=== PATIENT | male | born 1975 | race Caucasian/White ===

== ENCOUNTER 2017-11-21 16:55 | Emergency (ER) | payer BC ==
--- NOTE | 2017-11-21 19:24 | RAD REPORT ---
EXAM DESCRIPTION: CT - Stone Protocol - 11/21/2017 7:08 pm CLINICAL HISTORY: Flank pain. urinary retention COMPARISON: No comparisons TECHNIQUE: Axial images were obtained without oral or IV contrast. Lack of contrast limits solid org an and vascular assessment. The [id number] spans the entirety of the system partially obscuring uppermost abdomen and lung bases. Coronal reformatted images were obtained and reviewed. All CT scans are performed using dose optimization technique as appropriate and may include automated exposure control or mA/KV adjustment according to patient size. FINDINGS: The lower lung cervantes are clear. Imaged portions of the liver and spleen show no suspicious findings on non-contrast imaging. The panc reas and adrenal glands are normal. No pathologic lymphadenopathy in the abdomen or pelvis. No urinary tract stones or obstructive uropathy. No bowel obstruction, free air, free fluid or abscess. Normal appendix noted. No significant bony abnormality. IMPRESSION: No urinary tract stones or obstructive uropathy.
[2017-11-21 20:18] LABS: Potassium 3.9 mEq/L (3.6-5.0)
[2017-11-21 20:24] LABS: Albumin 4.8 g/dL (3.2-5.5); Bilirubin Direct 0.1 mg/dL (0-0.2); Bilirubin Total 0.5 mg/dL (0.3-1.2); Protein, Total 8.1 g/dL (6.0-8.3)
[2017-11-21 20:26] LABS: Absolute Lymphocytes (CBC) 1.8 K/uL (0.7-4.9); Absolute Monocytes 0.6 K/uL (0.1-1.3); Absolute Neutrophil 8.2 K/uL (1.8-8.0); Basophils % 0.3 % (0-1.3); Eosinophils % 1.1 % (0-4.4); Hematocrit 45.6 % (39.6-49.0); Lymphocytes % 16.4 % (15.3-44.8); MCH 31.2 pg (27.0-35.0); MPV 10.7 fL (7.6-11.3); Monocytes % 5.6 % (3.3-12.3); RBC Red Blood Cell Count 5.07 M/uL (4.33-5.43)
[2017-11-21] MEDS ORDERED: NA CHLORIDE 0.9% 1,000 ML ONE (20:52)
[2017-11-21 21:52] LABS: Urine Bacteria <20 /HPF (NONE SEEN); Urine Culture Reflex Order NOT NEEDED; Urine RBC 20-50 /HPF (NONE SEEN)
[2017-11-21 21:53] LABS: Urine Blood 2+ (NEG); Urine Glucose NEGATIVE (NEG); Urine Protein NEGATIVE (NEG); Urine pH 6.5 (5.0-7.0)
--- NOTE | 2017-11-21 22:13 | EDPHYS ---
Physician Documentation [facility] Name: Nicho Hernandez Age: 42 yrs Sex: Male : 1975 Arrival Date: 11/21/2017 Time: 16:58 Bed 27 Private MD: None, None ED Physician Umair Ochoa HPI: 11/21 19:00 This 42 yrs old Male presents to ER via Ambulatory with complaints of Urinary cp Retention. 19:00 The patient presents with urinary symptoms, dribbling of urine, retention. cp 19:00 Onset: The symptoms/episode began/occurred yesterday, and became worse today. cp Associated signs and symptoms: Pertinent positives: abdominal pain, Pertinent negatives: constipation, diarrhea, dysuria, fever, hematuria, vomiting, testicular or penile pain. Severity of symptoms: in the emergency department the symptoms are actually worse. The patient has not experienced similar symptoms in the past. Historical: - Allergies: 17:29 No Known Allergies; aa5 - PMHx: 17:29 Prostatitis; aa5 - PSHx: 17:29 None; aa5 - Immunization history:: Adult Immunizations up to date. - Social history:: Smoking status: Patient/guardian denies using tobacco. - Ebola Screening: : No symptoms or risks identified at this time. ROS: 19:05 Constitutional: Negative for body aches, chills, fever, poor PO intake. cp 19:05 Eyes: Negative for injury, pain, redness, and discharge. cp Exam: 19:13 Constitutional: The patient appears in no acute distress, alert, awake, non-toxic, well cp developed, well nourished. 19:13 Head/Face: Normocephalic, atraumatic. cp 19:13 Eyes: Periorbital structures: appear normal, Pupils: equal, round, and reactive to light and accomodation, Extraocular movements: intact throughout, Conjunctiva: normal, no exudate, no injection, Sclera: no appreciated abnormality, Lids and lashes: appear normal, bilaterally. 19:13 ENT: External ear(s): are unremarkable, Nose: is normal, Mouth: Lips: moist, Oral mucosa: pink and intact, moist, Posterior pharynx: is normal, airway is patent, no erythema, no exudate, Voice: is normal. 19:13 Neck: ROM/movement: is normal, is supple, without pain, no range of motions limitations, no nuchal rigidity. 19:13 Chest/axilla: Inspection: normal, Palpation: is normal, no crepitus, no tenderness. 19:13 Cardiovascular: Rate: normal, Rhythm: regular, Edema: is not appreciated, JVD: is not appreciated. 19:13 Respiratory: the patient does not display signs of respiratory distress, Respirations: normal, no use of accessory muscles, no retractions, no splinting, no tachypnea, Breath sounds: are clear throughout, no decreased breath sounds, no stridor, no wheezing. 19:13 Abdomen/GI: Inspection: abdomen appears normal, Bowel sounds: active, all quadrants, Palpation: soft, in all quadrants, mild abdominal tenderness, in the right lower quadrant and left lower quadrant, rebound tenderness, is not appreciated, voluntary guarding, is not appreciated, involuntary guarding, is not appreciated. 19:13 Back: ROM is normal, CVA tenderness, is absent. 19:13 Musculoskeletal/extremity: Exam is negative for bony tenderness, calf tenderness, deformity, edema, injury. 19:13 Skin: cellulitis, is not appreciated, no rash present. 19:13 Neuro: Orientation: to person, place \T\ time. Mentation: lucid, able to follow commands, Cerebellar function: is grossly normal, Motor: moves all fours, strength is normal, Sensation: no obvious gross deficits. Vital Signs: 17:29 BP 150 / 102; Pulse 95; Resp 16 S; Temp 97.6(TE); Pulse Ox 100% on R/A; Weight 99.79 kg aa5 (R); Height 6 ft. 0 in. (182.88 cm) (R); Pain 6/10; 22:00 BP 138 / 88; Pulse 90; Resp 17; Pulse Ox 100% on R/A; kr2 17:29 Body Mass Index 29.84 (99.79 kg, 182.88 cm) aa5 MDM: 18:45 Patient medically screened. cp 19:00 Differential diagnosis: nonspecific abdominal pain, UTI, urinary retention, cp prostatitis, urethritis. 22:10 Data reviewed: vital signs, nurses notes, lab test result(s), radiologic studies, CT cp scan, and as a result, I will discharge patient. 22:10 Counseling: I had a detailed discussion with the patient and/or guardian regarding: the cp historical points, exam findings, and any diagnostic results supporting the discharge/admit diagnosis, lab results, radiology results, the need for outpatient follow up, a urologist, to return to the emergency department if symptoms worsen or persist or if there are any questions or concerns that arise at home. 22:10 Response to treatment: the patient's symptoms have mildly improved after treatment, cp VSS. Labs and CT report reviewed. Patient able to empty bladder in ED. Will discharge to home for continued monitoring. 11/21 18:45 Order name: Amylase, Serum; Complete Time: 21:12 cp 11/21 18:45 Order name: Basic Metabolic Panel; Complete Time: 21:12 11/21 21:12 Interpretation: Normal except: GFR 74. 11/21 18:45 Order name: CBC with Diff; Complete Time: 21:12 cp 11/21 21:12 Interpretation: Normal except: IONA% 76.6; NEUT A 8.2. 11/21 18:45 Order name: Creatinine for Radiology; Complete Time: 21:12 11/21 18:45 Order name: Hepatic Function; Complete Time: 21:12 cp 11/21 18:45 Order name: Lipase; Complete Time: 21:12 cp 11/21 18:39 Order name: Bladder Scanner; Complete Time: 18:39 aa5 11/21 18:45 Order name: Urine Microscopic Only; Complete Time: 22:04 cp 11/21 22:04 Interpretation: Normal except: URBC 20-50. 11/21 18:46 Order name: CT Stone Protocol; Complete Time: 19:53 cp 11/21 19:53 Interpretation: Report reviewed. 11/21 21:06 Order name: Urine Dipstick--Ancillary (enter results); Complete Time: 22:04 eb 11/21 18:39 Order name: Bladder Scanner: Post void; Complete Time: 18:39 aa5 11/21 18:45 Order name: IV Saline Lock; Complete Time: 19:44 cp 11/21 18:45 Order name: Labs collected and sent; Complete Time: 19:44 cp 11/21 18:45 Order name: Urine Dipstick-Ancillary (obtain specimen); Complete Time: 22:24 cp Administered Medications: 20:54 Drug: NS 0.9% 1000 ml Route: IV; Rate: 1 bolus; Site: left antecubital; kr2 22:24 Follow up: Response: No adverse reaction; IV Status: Completed infusion kr2 22:14 Drug: Rocephin - (cefTRIAXone) 1 grams Route: IVPB; Infused Over: 30 mins; Site: left kr2 antecubital; 22:33 Follow up: Response: No adverse reaction; IV Status: Completed infusion kr2 22:38 CANCELLED (Physician Discretion): NS 0.9% 1000 ml IV at 125 ml/hr continuous kr2 Disposition: 11/21/17 22:12 Discharged to Home. Impression: Urinary tract infection, site not specified. - Condition is Stable. - Discharge Instructions: Urinary Tract Infection. - Prescriptions for Cipro 500 mg Oral Tablet - take 1 tablet by ORAL route every 12 hours for 10 days; 20 tablet. Flomax 0.4 mg Oral Capsule, Sust. Release 24 hr - take 1 capsule by ORAL route once daily for 7 days 1/2 hour following the same meal each day; 7 capsule. - Medication Reconciliation Form, Thank You Letter, Antibiotic Education, Prescription Opioid Use form. - Follow up: Bruna Krishnamurthy MD; When: 2 - 3 days; Reason: Recheck today's complaints. Follow up: Bruna Krishnamurthy MD; When: 1 week; Reason: Recheck today's complaints. - Problem is new. - Symptoms have improved. Addendum: 11/25/2017 07:09 Co-signature as Attending Physician, Umair Ochoa MD I agree with the assessment and k dr plan of care. Signatures: Dispatcher [employer] EDNC Umair Ochoa MD MD [facility] Raine Dominguez RN RN aa5 Nicanor De La Rosa PA PA Pattie Rollins RN RN kr2 Corrections: (The following items were deleted from the chart) 11/21 22:24 18:39 Wayne ordered. aa5 kr2 22:38 20:16 NS 0.9% 1000 ml IV at 125 ml/hr continuous ordered. cp kr2 22:38 22:37 NS 0.9% 1000 ml IV at 125 ml/hr continuous ordered. kr2 kr2 22:40 22:12 11/21/2017 22:12 Discharged to Home. Impression: Urinary tract infection, site kr2 not specified. Condition is Stable. Forms are Medication Reconciliation Form, Thank You Letter, Antibiotic Education, Prescription Opioid Use. Follow up: Bruna Krishnamurthy; When: 1 week; Reason: Recheck today's complaints. Problem is new. Symptoms have improved. cp
--- NOTE | 2017-11-21 22:13 | ER ---
Nurse's Notes [facility] Name: Nicho Hernandez Age: 42 yrs Sex: Male : 1975 Arrival Date: 11/21/2017 Time: 16:58 Bed 27 Private MD: None, None Diagnosis: Urinary tract infection, site not specified Presentation: 11/21 17:26 Presenting complaint: Patient states: normal last void was yesterday afternoon. Pt aa5 states "today I am just dribbling". pt reports suprapubic pressure and back discomfort. Transition of care: patient was not received from another setting of care. Onset of symptoms was November 2017. Risk Assessment: Do you want to hurt yourself or someone else? Patient reports no desire to harm self or others. Initial Sepsis Screen: Does the patient meet any 2 criteria? No. Patient's initial sepsis screen is negative. Does the patient have a suspected source of infection? No. Patient's initial sepsis screen is negative. Care prior to arrival: None. 17:26 Method Of Arrival: Ambulatory aa5 17:26 Acuity: JEANNIE 3 aa5 Historical: - Allergies: 17:29 No Known Allergies; aa5 - PMHx: 17:29 Prostatitis; aa5 - PSHx: 17:29 None; aa5 - Immunization history:: Adult Immunizations up to date. - Social history:: Smoking status: Patient/guardian denies using tobacco. - Ebola Screening: : No symptoms or risks identified at this time. Screenin:46 Abuse screen: Denies threats or abuse. Nutritional screening: No deficits noted. aa5 Tuberculosis screening: No symptoms or risk factors identified. Fall Risk None identified. Assessment: 18:20 General: Appears uncomfortable, Behavior is calm, cooperative. Pain: Complains of pain aa5 in suprapubic area Pain does not radiate. Pain currently is 6 out of 10 on a pain scale. Quality of pain is described as pressure, Pain began this morning Is continuous. Neuro: Level of Consciousness is awake, alert, obeys commands, Oriented to person, place, time, situation. Cardiovascular: Heart tones S1 S2 present Rhythm is regular. Respiratory: Airway is patent Respiratory effort is even, unlabored, Respiratory pattern is regular, symmetrical. GI: No signs and/or symptoms were reported involving the gastrointestinal system. : Reports inability to void. EENT: No signs and/or symptoms were reported regarding the EENT system. Derm: Skin is pink, warm \\T\\ dry. Musculoskeletal: Range of motion: intact in all extremities. 18:40 Reassessment: Bladder scan completed Total volume:476 cc. Attempted Wayne insertion, aa5 unable to insert Wayne at this time. When Wayne cath was removed pt was able to void. Post-void bladder scan was completed and total volume was 240 cc. Pt reports pain has decreased and appears comfortable at this time. . 18:40 Reassessment: Patient and/or family updated on plan of care and expected duration. Pain aa5 level reassessed. Patient is alert, oriented x 3, equal unlabored respirations, skin warm/dry/pink. 19:15 Reassessment: Patient appears in no apparent distress at this time. Patient and/or kr2 family updated on plan of care and expected duration. Pain level reassessed. Patient is alert, oriented x 3, equal unlabored respirations, skin warm/dry/pink. Patient states he was able to urinate "better and feels like he emptied his bladder" Patient did not provide a sample. Instructed patient to collect a urine sample with next urination Patient denies pain at this time. 20:30 Reassessment: Patient appears in no apparent distress at this time. Patient and/or kr2 family updated on plan of care and expected duration. Pain level reassessed. Patient is alert, oriented x 3, equal unlabored respirations, skin warm/dry/pink. Patient denies pain at this time. 21:30 Reassessment: Patient appears in no apparent distress at this time. Patient and/or kr2 family updated on plan of care and expected duration. Pain level reassessed. Patient is alert, oriented x 3, equal unlabored respirations, skin warm/dry/pink. Patient was able to urinate 240mL of caro urine. Bladder scan repeated and 94mL of urine shown on scan. Notified JOANN Smith of results Patient denies pain at this time. 22:13 Reassessment: Patient appears in no apparent distress at this time. Patient and/or kr2 family updated on plan of care and expected duration. Pain level reassessed. Patient is alert, oriented x 3, equal unlabored respirations, skin warm/dry/pink. Patient denies pain at this time. Vital Signs: 17:29 BP 150 / 102; Pulse 95; Resp 16 S; Temp 97.6(TE); Pulse Ox 100% on R/A; Weight 99.79 kg aa5 (R); Height 6 ft. 0 in. (182.88 cm) (R); Pain 6/10; 22:00 BP 138 / 88; Pulse 90; Resp 17; Pulse Ox 100% on R/A; kr2 17:29 Body Mass Index 29.84 (99.79 kg, 182.88 cm) aa5 ED Course: 16:58 Patient arrived in ED. sb2 16:59 None, None is Private Physician. sb2 17:28 Triage completed. aa5 17:28 Arm band placed on. aa5 18:20 Patient has correct armband on for positive identification. Placed in gown. Adult w/ aa5 patient. 18:45 Nicanor De La Rosa PA is PHCP. cp 18:45 Umair Ochoa MD is Attending Physician. cp 18:47 No provider procedures requiring assistance completed. aa5 19:[address] via wheelchair. sw 19:08 CT completed. Patient tolerated procedure well. Patient moved back from CT. sw 19:09 CT Stone Protocol In Process Unspecified. EDMS 19:31 Pattie Aguilar, GOOD is Primary Nurse. kr2 19:35 Inserted saline lock: 22 gauge in left antecubital area, using aseptic technique. Blood kr2 collected. 22:11 Bruna Krishnamurthy MD is Referral Physician. cp 22:11 Referral Physician role handed off by Bruna Krishnamurthy MD cp 22:11 Bruna Krishnamurthy MD is Referral Physician. cp 22:39 IV discontinued, intact, bleeding controlled, No redness/swelling at site. Pressure kr2 dressing applied. Administered Medications: 20:54 Drug: NS 0.9% 1000 ml Route: IV; Rate: 1 bolus; Site: left antecubital; kr2 22:24 Follow up: Response: No adverse reaction; IV Status: Completed infusion kr2 22:14 Drug: Rocephin - (cefTRIAXone) 1 grams Route: IVPB; Infused Over: 30 mins; Site: left kr2 antecubital; 22:33 Follow up: Response: No adverse reaction; IV Status: Completed infusion kr2 22:38 CANCELLED (Physician Discretion): NS 0.9% 1000 ml IV at 125 ml/hr continuous kr2 Outcome: 22:12 Discharge ordered by . cp 22:38 Discharged to home ambulatory, with friend. kr2 22:38 Condition: good 22:38 Discharge instructions given to patient, friend, Instructed on discharge instructions, follow up and referral plans. medication usage, Demonstrated understanding of instructions, follow-up care, medications, Prescriptions given X 2. 22:40 Patient left the ED. kr2 Signatures: Dispatcher [employer] EDMS Raine Dominguez, RN RN [email or web address] Cheyenne Arellano Corey, PA PA Pattie Rollins RN RN kr2 Sandra Fowler sb2
[2017-11-21] MEDS ORDERED: CEFTRIAXONE/SWI 1gm 1 GM/10 ML SYR ONE (22:17)
== END 2017-11-21 22:40 | disposition home or self-care (01) ==
LOC: ER 16:55
DX: N39.0 Urinary tract infection, site not specified (principal)
CPT/HCPCS: 36415; 74176; 76377; 80048; 80076; 81003; 81015; 82150; 83690; 85025; 87086; 87088; 96361; 96365; 99284; J0696; J7030